=== PATIENT | male | born 1960 | race Caucasian/White ===

== ENCOUNTER 2021-06-22 12:31 | Outpatient (CLI) | payer MEDICARE ==
[2021-06-23 13:27] LABS: SARS-CoV-2 PCR by NAA Not Detected (NotDetected)
== END 2021-06-22 12:32 | disposition home or self-care (01) ==
LOC: CSHLAB 12:31
PROVIDERS: ATTEND Surgery
DX: Z01.812 Encounter for preprocedural laboratory examination (principal); Z20.822 Contact with and (suspected) exposure to COVID-19; C34.11 Malignant neoplasm of upper lobe, right bronchus or lung
CPT/HCPCS: U0003; U0005

== ENCOUNTER 2021-06-24 06:23 | Day surgery (SDC) | payer MEDICARE ==
[2021-06-24] MEDS ORDERED: Lidocaine 1% MPF 2 ML VIAL ONE (06:48)
[2021-06-24] MEDS ORDERED: EPINEPHrine 1 MG/ML AMP ONE (06:49)
[2021-06-24] MEDS ORDERED: Bupivacaine 0.25% HCL 30 ML VIAL ONE (06:49)
[2021-06-24] MEDS ORDERED: Midazolam HCl 2 mg/2 ml Vial ONE (06:55)
[2021-06-24] MEDS ORDERED: Famotidine/PF 20 mg/2ml Vial ONE (06:55)
[2021-06-24] MEDS ORDERED: PROPOFOL 40 ML ONE (06:57)
[2021-06-24] MEDS ORDERED: Fentanyl 100 MCG/2 ML VIAL ONE (06:57)
[2021-06-24] MEDS ORDERED: Lidocaine 2% PF 5 ML VIAL ONE (06:58)
[2021-06-24] MEDS ORDERED: Metoclopramide HCl 10 MG/2 ML VIAL ONE (06:59)
[2021-06-24] MEDS ORDERED: Ondansetron PF 4 MG/2 ML Vial ONE (06:59)
[2021-06-24] MEDS ORDERED: HYDROcodone/Acetaminophen 5/325 mg Tablet PO PRN (08:08)
== END 2021-06-24 08:35 | disposition home or self-care (01) ==
LOC: CSHLAB 06:23 → CSHSDC 08:35
PROVIDERS: ATTEND Surgery
DX: C34.11 Malignant neoplasm of upper lobe, right bronchus or lung (principal)
CPT/HCPCS: 76000; C1788; J0171; J0690; J1642; J2001; J2250; J2405; J2704; J2765; J3010; S0020; S0028